=== PATIENT | female | born 1930 | race Caucasian/White ===

== ENCOUNTER 2017-12-08 22:49 | Inpatient (IN) | payer OTHER ==
[~2017-12-08] VITALS: Ht 160 cm; Wt 62.6 kg
[~2017-12-08 22:49] MED LIST: ALEN70TA4 PO; CALCTAB5 PO; CMD/25 PO; HYDR25TA4 PO; LEVO25TA PO; MCRK20 PO; METO25TA56 PO
[2017-12-08] MEDS ORDERED: ALBUT/IPRATROP 3MG/0.5MG NEB 3 ML VIAL INH STA (22:59)
[2017-12-08] MEDS ORDERED: ASPI81TA28 PO (23:14)
[2017-12-08] MEDS ORDERED: ATOR10TA82 PO (23:15)
[2017-12-08] MEDS ORDERED: DILT-115 PO (23:16)
[2017-12-08] MEDS ORDERED: MELA1TAB5 PO (23:17)
[2017-12-08] MEDS ORDERED: MICONAZOLE EXT (23:21)
[2017-12-08] MEDS ORDERED: OSEL75CA23 PO (23:23)
--- NOTE | 2017-12-08 23:24 | EMERGENCY ROOM VISIT NOTE ---
History Report prepared by Everardo: Tima Amato Under the Supervision of: Dr. Thompson Tanner M.D. First contact with patient: 22:52 Chief Complaint: ALTERED MENTAL STATUS Stated Complaint: ALTERED MENTAL STATUS History of Present Illness The patient is a 87 year old female who presents to the Emergency Room with complaints of constant altered mental status that started today. Per nursing, the patient is from [facility] and has been experiencing a cough for a week, which she started taking an antibiotic for. Per EMS, the patient became mentally altered today. She began to become frightened of people and started to believe people were going to hurt her. The HPI is limited due to the patient's altered mental status. Source of History: EMS, nursing staff Onset: today Position: other (global) Quality: other (global) Timing: constant Associated Symptoms: + cough Review of Systems The ROS is limited due secondary to the patient's altered mental status and continuous refusal. Past Medical & Surgical Medical Problems: (1) Diverticulosis (2) HTN (hypertension) (3) Pacemaker (4) Sepsis Family History Patient reports no known family medical history. Social History Smoking Status: Never Smoker Smokeless Tobacco Use: No Alcohol Use: none Drug Use: none Housing Status: lives alone Occupation Status: retired Current/Historical Medications Scheduled Aspirin (Aspirin Ec), 81 MG PO DAILY Atorvastatin (Lipitor), 10 MG PO DAILY Diltiazem Hcl Ext Rel (Tiazac), 240 MG PO DAILY Levothyroxine Sodium (Synthroid), 50 MCG PO DAILY Melatonin (Kp Melatonin), 3 MG PO HS Metoprolol Tartrate (Lopressor) (Lopressor), 12.5 MG PO BID Oseltamivir Phosphate (Tamiflu), 30 MG PO DAILY [miconazole powder], 1 APPLN EXT BID Scheduled PRN Acetaminophen Tab (Tylenol), 650 MG PO Q4 PRN for MILD/SEVERE PAIN Albuterol Sulf (Proventil 0.083% 2.5MG/3ML), 2.5 MG INH Q4 PRN for WHEEZING/ COUGH [Dulcolax Suppository], 10 MG RE DIRECTED PRN for CONSTIPATION Allergies Coded Allergies: Bacitracin (Verified Allergy, Unknown, UNSURE OF REACTION, 12/08/17) Neomycin (Verified Allergy, Unknown, UNSURE OF REACTION, 12/08/17) Nitroglycerin (Verified Allergy, Unknown, "PATCH GLUE CAUSED RASH", 12/08/17 ) Penicillins (Verified Allergy, Unknown, "CAN'T REMEMBER REACTION" ?RASH, ) Polymyxin B (Verified Allergy, Unknown, UNSURE OF REACTION, 12/08/17) Sulfa Drugs (Verified Allergy, Unknown, RASH, 12/08/17) Tetracycline (Verified Allergy, Unknown, UNSURE OF REACTION, 12/08/17) Physical Exam Vital Signs Date Time Temp Pulse Resp B/P (MAP) Pulse Ox O2 Delivery O2 Flow Rate FiO2 12/09/17 00:36 67 22 169/64 95 Room Air 12/08/17 23:05 65 12/08/17 22:57 37.5 64 24 183/71 98 Room Air Physical Exam GENERAL: Patient is unpleasantly demented, angry, well appearing and in no acute distress. HEENT: No acute trauma, normocephalic atraumatic, mucous membranes moist, no nasal congestion, no scleral icterus. NECK: No stridor, no adenopathy, no meningismus, trachea is midline. LUNGS: No dyspnea. Clear to auscultation and equal bilaterally. Harsh productive cough with diffuse crackles and wheezing. no rhonchi. HEART: Regular rate and rhythm. No murmurs, rubs, gallops appreciated. ABDOMEN: Soft, nontender, bowel sounds positive, no masses appreciated, no peritonitis. BACK: No midline tenderness, no CVA tenderness EXTREMITIES: Normal motion all extremities, no cyanosis. 2+ edema bilateral lower legs NEUROLOGIC: Patient is demented and angry, no acute motor or sensory deficits, no focal weakness, cranial nerves grossly intact. SKIN: No rash, no jaundice, no diaphoresis. Medical Decision & Procedures ER Provider Diagnostic Interpretation: X ray results are stated below per my interpretation ONE VIEW CHEST X-RAY: Right lower lobe infiltrate developed. No effusion. No evidence of congestive failure. Laboratory Results 12/08/17 23:48 Red Blood Count 3.65, Mean Corpuscular Volume 92.1, Mean Corpuscular Hemoglobin 29.9, Mean Corpuscular Hemoglobin Concent 32.4, Mean Platelet Volume 10.4, Neutrophils (%) (Auto) 67.2, Lymphocytes (%) (Auto) 22.7, Monocytes (%) (Auto) 8.4, Eosinophils (%) (Auto) 1.2, Basophils (%) (Auto) 0.2, Neutrophils # (Auto) 9.33, Lymphocytes # (Auto) 3.15, Monocytes # (Auto) 1.17, Eosinophils # (Auto) 0.16, Basophils # (Auto) 0.03 12/08/17 23:48 Test 12/08/17 23:00 12/08/17 23:05 12/08/17 23:48 12/08/17 23:53 Urine Color YELLOW Urine Appearance CLEAR (CLEAR) Urine pH 5.0 (4.5-7.5) Urine Specific [place] 1.019 (1.000-1.030) Urine Protein 1+ (NEG) Urine Glucose (UA) NEG (NEG) Urine Ketones NEG (NEG) Urine Occult Blood NEG (NEG) Urine Nitrite NEG (NEG) Urine Bilirubin NEG (NEG) Urine Urobilinogen NEG (NEG) Urine Leukocyte Esterase NEG (NEG) Urine WBC (Auto) 1-5 /hpf (0-5) Urine RBC (Auto) 0-4 /hpf (0-4) Urine Hyaline Casts (Auto) 1-5 /lpf (0-5) Urine Epithelial Cells (Auto) 20-30 /lpf (0-5) Urine Bacteria (Auto) NEG (NEG) Influenza Type A Antigen Neg for Influ A (NEG) Influenza Type B Antigen Neg for Influ B (NEG) White Blood Count 13.88 K/uL (4.8-10.8) Red Blood Count 3.65 M/uL (4.2-5.4) Hemoglobin 10.9 g/dL (12.0-16.0) Hematocrit 33.6 % (37-47) Mean Corpuscular Volume 92.1 fL (80-100) Mean Corpuscular Hemoglobin 29.9 pg (25-34) Mean Corpuscular Hemoglobin Concent 32.4 g/dl (32-36) Platelet Count 208 K/uL (130-400) Mean Platelet Volume 10.4 fL (7.4-10.4) Neutrophils (%) (Auto) 67.2 % Lymphocytes (%) (Auto) 22.7 % Monocytes (%) (Auto) 8.4 % Eosinophils (%) (Auto) 1.2 % Basophils (%) (Auto) 0.2 % Neutrophils # (Auto) 9.33 K/uL (1.4-6.5) Lymphocytes # (Auto) 3.15 K/uL (1.2-3.4) Monocytes # (Auto) 1.17 K/uL (0.11-0.59) Eosinophils # (Auto) 0.16 K/uL (0-0.5) Basophils # (Auto) 0.03 K/uL (0-0.2) RDW Standard Deviation 48.0 fL (36.4-46.3) RDW Coefficient of Variation 14.2 % (11.5-14.5) Immature Granulocyte % (Auto) 0.3 % Immature Granulocyte # (Auto) 0.04 K/uL (0.00-0.02) Prothrombin Time 10.9 SECONDS (9.0-12.0) Prothromb Time International Ratio 1.0 (0.9-1.1) Anion Gap 8.0 mmol/L (3-11) Est Creatinine Clear Calc Drug Dose 38.3 ml/min Estimated GFR () 62.9 Estimated GFR (Non- 54.2 BUN/Creatinine Ratio 20.0 (10-20) Calcium Level 9.1 mg/dl (8.5-10.1) Magnesium Level 2.5 mg/dl (1.8-2.4) Total Bilirubin 0.3 mg/dl (0.2-1) Direct Bilirubin 0.1 mg/dl (0-0.2) Aspartate Amino Transf (AST/SGOT) 10 U/L (15-37) Alanine Aminotransferase (ALT/SGPT) 12 U/L (12-78) Alkaline Phosphatase 83 U/L (45-117) Total Creatine Kinase 39 U/L (26-192) Creatine Kinase MB 0.7 ng/ml (0.5-3.6) Creatine Kinase MB Ratio 1.8 (0-3.0) Troponin I < 0.015 ng/ml (0-0.045) Total Protein 8.2 gm/dl (6.4-8.2) Albumin 3.0 gm/dl (3.4-5.0) Thyroid Stimulating Hormone (TSH) 5.290 uIu/ml (0.300-4.500) Free Thyroxine 1.67 ng/dl (0.80-1.60) Bedside Lactic Acid Venous 1.24 mmol/L (0.90-1.70) Laboratory results as reviewed by me. Medications Administered Medications (Trade) Dose Ordered Sig/[place] Route Start Time Stop Time Status Last Admin Dose Admin Albuterol/ Ipratropium (Duoneb) 3 ml NOW STAT INH 12/08/17 22:59 12/08/17 23:01 DC 12/08/17 23:05 3 ML Levofloxacin (Levaquin / D5W) 750 mg NOW STAT IV 12/09/17 00:38 12/09/17 00:39 DC 12/09/17 00:54 750 MG ECG Per My Interpretation Indication: altered mental status Rate (beats per minute): 67 Rhythm: other (atrial paced) Findings: no acute ischemic change, no ectopy, other (Normal [place]) ED Course 2255: The patient was evaluated in room B06. A complete history and physical exam was performed. 8: I discussed the patients case with Kelly [facility]. He understands the patient's condition and agrees to accept the patient. The patient will be further evaluated. Medical Decision Differential: Sepsis, Infectious (UTI/Pneumonia/Meningitis/etc), Metabolic/ Electrolyte Abnormality, Cardiac, Dehydration, Anemia, Hepatic, Endocrine, Toxicologic, Neurologic, amongst other pathologies entertained. 87 yr old female arrives for evaluation of cough. Very poor lung exam which did improve somewhat with neb. Suspect developing PNA RLL. No fevers, hypoxia but does have elevated WBC from baseline. She has failed outpatient therapy with abx. Discussed with hospitalist for further eval given such poor lung exam. Medication Reconcilliation Current Medication List: was personally reviewed by me Blood Pressure Screening Patient's blood pressure: Elevated blood pressure Will be monitored by Hospitalist. Consults Time Called: 37 Consulting Phys[facility] Returned Call: 37 I discussed the [facility] case [facility]. He understands the patient's condition and agrees to accept the patient. The patient will be further evaluated. Impression Primary Impression: Pneumonia Scribe Attestation The scribe's documentation has been prepared under my direction and personally reviewed by me in its entirety. I confirm that the note above accurately reflects all work, treatment, procedures, and medical decision making performed by me. Departure Information Dispostion Being Evaluated By Hospitalist Referrals Westrick, Miley,M.D. (PCP) Patient Instructions My [facility]
[2017-12-08] MEDS ORDERED: ALBINS/ INH (23:25)
[2017-12-08] MEDS ORDERED: DULCOLAX SUPPOSITORY RE (23:28)
[2017-12-08] MEDS ORDERED: ACET-1693 PO (23:30)
[2017-12-08 23:35] LABS: INFLUENZA B ANTIGEN Neg for Influ B (NEG)
[2017-12-09] VITALS (8 sets, daily range): BP systolic 143–165; BP diastolic 68–78; PULSE 64–77; TEMP 36.4–36.6; O2SAT 96–98; Ht 160 cm; Wt 62.6 kg
[2017-12-09 00:08] LABS: BASO % 0.2 %; BASO ABS # 0.03 K/uL (0-0.2); EOS % 1.2 %; EOS ABS # 0.16 K/uL (0-0.5); HEMATOCRIT 33.6 % (37-47); HEMOGLOBIN 10.9 g/dL (12.0-16.0); IG# 0.04 K/uL (0.00-0.02); LYMPH % 22.7 %; LYMPH ABS # 3.15 K/uL (1.2-3.4); MEAN CELL VOLUME 92.1 fL (80-100); MEAN CORPUSCULAR HEMOGLOBIN 29.9 pg (25-34); MEAN CORPUSCULAR HGB CONC 32.4 g/dl (32-36); MEAN PLATELET VOLUME 10.4 fL (7.4-10.4); MONO % 8.4 %; MONO ABS # 1.17 K/uL (0.11-0.59); NEUT % 67.2 %; NEUT ABS # 9.33 K/uL (1.4-6.5); PLATELET COUNT 208 K/uL (130-400); RED CELL DISTRIBUTION WIDTH CV 14.2 % (11.5-14.5); WHITE BLOOD COUNT 13.88 K/uL (4.8-10.8)
[2017-12-09 00:26] LABS: ALT/SGPT 12 U/L (12-78); BLOOD UREA NITROGEN 19 mg/dl (7-18); CALCIUM 9.1 mg/dl (8.5-10.1); CARBON DIOXIDE 24 mmol/L (21-32); CREATININE 0.95 mg/dl (0.60-1.20); GLUCOSE 126 mg/dl (70-99); POTASSIUM 3.9 mmol/L (3.5-5.1); SODIUM 140 mmol/L (136-145)
[2017-12-09 00:31] LABS: ALKALINE PHOSPHATASE 83 U/L (45-117); AST/SGOT 10 U/L (15-37); CKMB 0.7 ng/ml (0.5-3.6); TOTAL PROTEIN 8.2 gm/dl (6.4-8.2)
[2017-12-09] MEDS ORDERED: LEVAQUIN 750MG / 150ML D5W IV STA (00:38)
[2017-12-09] MEDS ORDERED: METOPROLOL TARTRATE 25 MG TAB PO ONE (01:39)
[2017-12-09] MEDS ORDERED: LACTATED RINGER'S 1000ML 1,000 ML IV ONE (01:45)
[2017-12-09] MEDS ORDERED: ACETAMINOPHEN 325 MG TAB PO PRN (01:45)
[2017-12-09] MEDS ORDERED: HALOPERIDOL LACTATE 5 MG/ML 1 ML VIAL IM PRN (01:45)
[2017-12-09] MEDS ORDERED: PROCHLORPERAZINE INJ 5 MG in SYRINGE 4 ML IV PRN (01:45)
[2017-12-09] MEDS ORDERED: LEVALBUTEROL/IPRATROPIUM NEB INH PRN (01:45)
[2017-12-09] MEDS ORDERED: METHYLPREDNISOLONE IV 20 MG in SYRINGE 0 ML IV ONE (02:00)
[2017-12-09] MEDS ORDERED: LEVALBUTEROL 1.25MG/0.5ML NEB INH PRN (02:15)
[2017-12-09] MEDS ORDERED: IPRATROPIUM BROMIDE NEB SOLN 0.02% 2.5 ML VIAL INH PRN (02:15)
[2017-12-09] MEDS ORDERED: LEVALBUTEROL/IPRATROPIUM NEB INH SCH (03:00)
[2017-12-09] MEDS: IPRATROPIUM BROMIDE NEB SOLN 0.02% 2.5 ML VIAL INH SCH ×4 (03:22→19:09)
[2017-12-09] MEDS: LEVALBUTEROL 1.25MG/0.5ML NEB INH SCH ×4 (03:22→19:09)
[2017-12-09] MEDS ORDERED: BENZONATATE 100MG CAP PO PRN (03:30)
[2017-12-09] MEDS ORDERED: PNEUMOCOCCAL POLYSACCHARIDES 25 MCG/0.5 ML VIAL/SYR IM. ONE (03:30)
[2017-12-09] MEDS ORDERED: INFLUENZA ADMINISTRATION CHARGE ONE (03:30)
[2017-12-09] MEDS ORDERED: INFLUENZA VACCINE HIGH DOSE 65+ 0.5 ML SYR IM. ONE (03:30)
[2017-12-09] MEDS ORDERED: PNEUMOCOCCAL ADMINISTRATION CHARGE ONE (03:30)
--- NOTE | 2017-12-09 05:16 | DIAGNOSTIC IMAGING REPORT ---
CHEST ONE VIEW PORTABLE CLINICAL HISTORY: 87 years-old Female presenting with fever. TECHNIQUE: Portable upright AP view of the chest was obtained. COMPARISON: 10/22/2013. FINDINGS: Left subclavian pacer with leads to the right atrium and right ventricular apex. Atherosclerosis of the aortic arch. Chronic silhouette normal in size. Patient is slightly MÉNDEZ rotated. Lungs may be mildly hyperinflated. No focal opacity. No large effusion or pneumothorax. Osteopenia. Compression deformity of a lower thoracic vertebral body is new from prior. Upper abdomen normal. IMPRESSION: 1. Mild hyperinflation without focal infiltrate or convincing evidence of acute cardiopulmonary disease. 2. Osteopenia with interval development of a compression deformity in the lower thoracic spine, new since 2013. The report will be called/faxed according to standard departmental protocol. Electronically signed by: Jhony Greco M.D. 12/09/2017 5:15 AM Dictated Date/Time: 12/09/2017 5:13 AM
[2017-12-09] MEDS: ENOXAPARIN 30 MG/0.3 ML SYR SQ SCH (05:30)
[2017-12-09] MEDS: LEVOTHYROXINE 50 MCG TAB PO SCH (05:32)
[2017-12-09 06:20] LABS: BASO % 0.1 %; BASO ABS # 0.01 K/uL (0-0.2); EOS % 0.3 %; EOS ABS # 0.03 K/uL (0-0.5); HEMATOCRIT 30.5 % (37-47); IG# 0.04 K/uL (0.00-0.02); LYMPH % 9.9 %; MEAN CELL VOLUME 91.9 fL (80-100); MEAN CORPUSCULAR HEMOGLOBIN 30.1 pg (25-34); MEAN CORPUSCULAR HGB CONC 32.8 g/dl (32-36); MEAN PLATELET VOLUME 10.6 fL (7.4-10.4); MONO % 2.6 %; MONO ABS # 0.24 K/uL (0.11-0.59); NEUT % 86.7 %; NEUT ABS # 7.89 K/uL (1.4-6.5); PLATELET COUNT 187 K/uL (130-400); RED CELL DISTRIBUTION WIDTH CV 14.2 % (11.5-14.5); WHITE BLOOD COUNT 9.11 K/uL (4.8-10.8)
[2017-12-09 06:25] LABS: INFLUENZA A PCR Neg for Influ A (NEG); INFLUENZA B PCR Neg for Influ B (NEG)
[2017-12-09] MEDS ORDERED: OSELTAMIVIR PHOSPHATE SUSP 30 MG/5 ML UDP PO SCH (08:00)
[2017-12-09] MEDS: DILTIAZEM HCL 120 MG EXT REL CAP PO SCH (08:10)
[2017-12-09] MEDS: ASPIRIN 81 MG ECTAB PO SCH (08:10)
[2017-12-09] MEDS: ATORVASTATIN 10 MG TAB PO SCH (08:10)
[2017-12-09] MEDS ORDERED: MICONAZOLE NITRATE POWDER 43 GM EXT PRN (08:30)
[2017-12-09] MEDS ORDERED: AZITHROMYCIN 250 MG TAB PO ONE (09:00)
[2017-12-09] MEDS ORDERED: DEXTROSE 50% 50 ML SYR IV PRN (10:15)
[2017-12-09] MEDS ORDERED: GLUCOSE 40% GEL 15 GM TUBE PO PRN (10:15)
[2017-12-09] MEDS ORDERED: GLUCOSE 10 TABS/TUBE PO PRN (10:15)
[2017-12-09] MEDS ORDERED: GLUCAGON FOR INJ 1 MG VIAL SQ PRN (10:15)
[2017-12-09 10:59] LABS: HEMOGLOBIN A1C 6.5 % (4.5-5.6)
--- NOTE | 2017-12-09 11:21 | HISTORY & PHYSICAL EXAMINATION ---
DATE OF ADMISSION: 12/09/2017 PRIMARY CARE DOCTOR: Dr. Bailey Patient is a [facility] resident. CHIEF COMPLAINT: cough, confusion as per records. HISTORY OF PRESENT ILLNESS: History obtained from patient, daughter, records. Limited history from patient secondary to dementia. Medical history is significant for dementia, chronic diastolic heart failure, EF of 70%. aFib status post pacemaker placement not on anticoagulation secondary to hx hemopericardium, Hemopericardium status post surgery, hypertension, hyperlipidemia, chronic anemia (baseline hemoglobin 10); DM2, diet controlled, hypothyroidism, history of DVT as per records, colon cancer status post surgery and chemotherapy Recent confinement last October 2013 for CHF, pericardial effusion secondary to perforation of ventricles by pacemaker wire sp pericardicentesis. Patient transferred to [facility] for hemopericardium. Patient subsequently underwent upper pericardectomy w/ drainage of hemo- pericardium, partial removal of pacemaker lead. Coumadin stopped on discharge. As per records, patient noted to be more confused than usual last few days, has been coughing for a week. Patient having paranoia and visual hallucinations. Patient denies chest pain, shortness of breath. No witnessed aspiration. Patient brought to the Emergency Room. Received Levaquin for possible pneumonia. MEDICAL HISTORY: As above. SURGERIES: She has had a pacemaker placement, bowel resection, appendectomy, cholecystectomy, and orthopedic surgery, pericardiectomy. Current/Historical Medications Scheduled Aspirin (Aspirin Ec), 81 MG PO DAILY Atorvastatin (Lipitor), 10 MG PO DAILY Diltiazem Hcl Ext Rel (Tiazac), 240 MG PO DAILY Levothyroxine Sodium (Synthroid), 50 MCG PO DAILY Melatonin (Kp Melatonin), 3 MG PO HS Metoprolol Tartrate (Lopressor) (Lopressor), 12.5 MG PO BID Oseltamivir Phosphate (Tamiflu), 30 MG PO DAILY [miconazole powder], 1 APPLN EXT BID Scheduled PRN Acetaminophen Tab (Tylenol), 650 MG PO Q4 PRN for MILD/SEVERE PAIN Albuterol Sulf (Proventil 0.083% 2.5MG/3ML), 2.5 MG INH Q4 PRN for WHEEZING/ COUGH [Dulcolax Suppository], 10 MG RE DIRECTED PRN for CONSTIPATION Allergies Coded Allergies: Bacitracin (Verified Allergy, Unknown, UNSURE OF REACTION, 12/08/17) Neomycin (Verified Allergy, Unknown, UNSURE OF REACTION, 12/08/17) Nitroglycerin (Verified Allergy, Unknown, "PATCH GLUE CAUSED RASH", 12/08/17 ) Penicillins (Verified Allergy, Unknown, "CAN'T REMEMBER REACTION" ?RASH, ) Polymyxin B (Verified Allergy, Unknown, UNSURE OF REACTION, 12/08/17) Sulfa Drugs (Verified Allergy, Unknown, RASH, 12/08/17) Tetracycline (Verified Allergy, Unknown, UNSURE OF REACTION, 12/08/17) FAMILY HISTORY: Hypertension. PERSONAL AND SOCIAL HISTORY: Nonsmoker, care home resident. REVIEW OF SYSTEMS: Could not be obtained. PHYSICAL EXAMINATION: VITAL SIGNS: Blood pressure noted to be 180/71 later 160/80. VA 67, RR 24 temperature 36.5 O2 sats 98% on room air. GENERAL: Noted to be demented, uncomfortable, respiratory distress, coughing. SKIN: Pallor, warm. HEENT: Pale palpebral conjunctivae, no ptosis , dry mucosa. NECK: Short, nontender. CHEST: Decreased breath sounds. Expiratory wheezes. HEART: Regular rate and rhythm. No murmur. ABDOMEN: Soft, nontender. EXTREMITIES: No edema. no gross deformities, no tenderness NEUROLOGIC: Demented but coherent. Slightly hard of hearing. Otherwise, no gross focality. LABS: Hemoglobin was noted to be 10, hematocrit 30.8, platelets noted to be 208. WBC 13 Sodium noted to be 140 potassium 2.9, chloride 108, CO2 24, BUN 90, creatinine 0.9, glucose 136. trop 0 Hemoglobin A1c from April of 2017 was 6.5. IMAGING DATA: Chest x-ray as per my interpretation, no obvious infiltrate. EKG as per my interpretation, paced rhythm. ASSESSMENT: 1. Sepsis secondary to complicated bronchitis. 2. Delirium on dementia secondary to above 3. HTN. Slightly elevated secondary to illness, agitation 4. SSS sp PPM off anticoagulation following history of hemopericardium sp surgery in 2013. 5. Hx colon cancer status post surgery and chemotherapy. 6. DM2, diet controlled, well controlled as of recent outpatient hemoglobin A1c from last year 7. Chronic anemia hemoglobin at baseline PLAN: GMF CS, Azithromycin for now. IVF Solu-Medrol 1 dose for persistent wheezing post nebs Nebs RTC p.r.n. ISS BG goal 140-180. Patient due for hemoglobin A1c recheck. DVT prophylaxis, Lovenox subQ. Full code as per daughter, JAIDENA Ms. Arianna Vuongjosettelu She requests updates from providers at [phone]. [facility]
[2017-12-09] MEDS: INSULIN ASPART 100 UNITS/ML 3 ML PEN SC SCH ×3 (13:03→20:39)
--- NOTE | 2017-12-09 17:14 | Progress Note ---
Internal Med Progress Note Date of Service: Dec 09, 2017. Provider Documentation: SUBJECTIVE: Seen and examined at bedside States having cough with clear expectoration Denies chest pain, SOB, abdominal pain, dizziness Patient's daughter informed that she noticed change in patient's mental status and she has been on Tamiflu Day #7 No other complaints Also denies any back pain, weakness/Numbness in extremities OBJECTIVE: Vital Signs-as noted below Physical Exam: General Appearance:Moderately built and nourished, no apparent distress Head: normocephalic, Atraumatic Eyes: normal inspection, EOMI, PERRL Neck: supple, Trachea midline Respiratory/Chest: Coarse breath sounds, Scattered rhonchi Cardiovascular: S1, S2, No murmur Abdomen/GI:Soft, Non tender, Bowel sounds present Extremities/Musculoskelatal:normal inspection, 1+ b/l edema Neurologic/Psych:grossly no focal neurological deficits Skin: normal color, warm Lab data as noted below. ASSESSMENT & PLAN: Acute Bronchitis: Leukocytosis normalized No fever Blood Cultures: Pending Lactate:Normal CXR: no signs of Pneumonia Continue Azithromycin Saturating 96% on room air continue Nebs Encephalopathy: could be multifactorial in setting of Dementia Secondary to Infection, Medications, Delirium Tamiflu could be contributing Will stop Tamiflu as patient already received for 7 days and screen is negative Reorient frequently Avoid Benzos HTN: Continue home medications monitor SSS S/P PPM Not on Anticoagulation 2/2 history of hemopericardium in 2013. H/O colon cancer S/P surgery and chemotherapy DM II: Diet controlled A1C:6.5 BGs elevated likely secondary to solumedrol Continue ISS Chronic anemia: No bleeding issues Monitor Hb Hypothyroidism: Continue Levothyroxine Will need repeat Thyroid tests as outpatient DVT Px: Lovenox SQ Code Status: Full Code Disposition: Plan to discharge back to [facility] when stable Vital Signs: Date Time Temp Pulse Resp B/P (MAP) Pulse Ox O2 Delivery O2 Flow Rate FiO2 12/09/17 15:23 36.6 70 20 143/78 (99) 96 12/09/17 14:30 72 16 96 Room Air 12/09/17 08:08 36.4 71 20 156/68 (97) 96 12/09/17 08:05 Room Air 12/09/17 07:24 72 16 98 Room Air 12/09/17 03:23 64 16 98 Room Air 12/09/17 01:50 36.5 73 24 165/73 98 Room Air 12/09/17 01:39 70 20 140/65 94 Room Air 12/09/17 00:36 67 22 169/64 95 Room Air 12/08/17 23:05 65 12/08/17 22:57 37.5 64 24 183/71 98 Room Air Lab Results: Results Past 24 Hours Test 12/08/17 23:00 12/08/17 23:05 12/08/17 23:48 12/08/17 23:53 Range/Units Urine Color YELLOW Urine Appearance CLEAR CLEAR Urine pH 5.0 4.5-7.5 Urine Specific [place] 1.019 1.000-1.030 Urine Protein 1+ NEG Urine Glucose (UA) NEG NEG Urine Ketones NEG NEG Urine Occult Blood NEG NEG Urine Nitrite NEG NEG Urine Bilirubin NEG NEG Urine Urobilinogen NEG NEG Urine Leukocyte Esterase NEG NEG Urine WBC (Auto) 1-5 0-5 /hpf Urine RBC (Auto) 0-4 0-4 /hpf Urine Hyaline Casts (Auto) 1-5 0-5 /lpf Urine Epithelial Cells (Auto) 20-30 0-5 /lpf Urine Bacteria (Auto) NEG NEG Influenza Type A Antigen Neg for Influ A NEG Influenza Type B Antigen Neg for Influ B NEG White Blood Count 13.88 4.8-10.8 K/uL Red Blood Count 3.65 4.2-5.4 M/uL Hemoglobin 10.9 12.0-16.0 g/dL Hematocrit 33.6 37-47 % Mean Corpuscular Volume 92.1 80-100 fL Mean Corpuscular Hemoglobin 29.9 25-34 pg Mean Corpuscular Hemoglobin Concent 32.4 32-36 g/dl Platelet Count 208 130-400 K/uL Mean Platelet Volume 10.4 7.4-10.4 fL Neutrophils (%) (Auto) 67.2 % Lymphocytes (%) (Auto) 22.7 % Monocytes (%) (Auto) 8.4 % Eosinophils (%) (Auto) 1.2 % Basophils (%) (Auto) 0.2 % Neutrophils # (Auto) 9.33 1.4-6.5 K/uL Lymphocytes # (Auto) 3.15 1.2-3.4 K/uL Monocytes # (Auto) 1.17 0.11-0.59 K/uL Eosinophils # (Auto) 0.16 0-0.5 K/uL Basophils # (Auto) 0.03 0-0.2 K/uL RDW Standard Deviation 48.0 36.4-46.3 fL RDW Coefficient of Variation 14.2 11.5-14.5 % Immature Granulocyte % (Auto) 0.3 % Immature Granulocyte # (Auto) 0.04 0.00-0.02 K/uL Prothrombin Time 10.9 9.0-12.0 SECONDS Prothromb Time International Ratio 1.0 0.9-1.1 Sodium Level 140 136-145 mmol/L Potassium Level 3.9 3.5-5.1 mmol/L Chloride Level 108 98-107 mmol/L Carbon Dioxide Level 24 21-32 mmol/L Anion Gap 8.0 3-11 mmol/L Blood Urea Nitrogen 19 7-18 mg/dl Creatinine 0.95 0.60-1.20 mg/dl Est Creatinine Clear Calc Drug Dose 38.3 ml/min Estimated GFR () 62.9 Estimated GFR (Non- 54.2 BUN/Creatinine Ratio 20.0 10-20 Random Glucose 126 70-99 mg/dl Calcium Level 9.1 8.5-10.1 mg/dl Magnesium Level 2.5 1.8-2.4 mg/dl Total Bilirubin 0.3 0.2-1 mg/dl Direct Bilirubin 0.1 0-0.2 mg/dl Aspartate Amino Transf (AST/SGOT) 10 15-37 U/L Alanine Aminotransferase (ALT/SGPT) 12 12-78 U/L Alkaline Phosphatase 83 45-117 U/L Total Creatine Kinase 39 26-192 U/L Creatine Kinase MB 0.7 0.5-3.6 ng/ml Creatine Kinase MB Ratio 1.8 0-3.0 Troponin I < 0.015 0-0.045 ng/ml Total Protein 8.2 6.4-8.2 gm/dl Albumin 3.0 3.4-5.0 gm/dl Thyroid Stimulating Hormone (TSH) 5.290 0.300-4.500 uIu/ml Free Thyroxine 1.67 0.80-1.60 ng/dl Bedside Lactic Acid Venous 1.24 0.90-1.70 mmol/L Test 12/09/17 05:35 12/09/17 05:43 12/09/17 11:59 12/09/17 17:00 Range/Units Influenza Type A (RT-PCR) Neg for Influ A NEG Influenza Type B (RT-PCR) Neg for Influ B NEG White Blood Count 9.11 4.8-10.8 K/uL Red Blood Count 3.32 4.2-5.4 M/uL Hemoglobin 10.0 12.0-16.0 g/dL Hematocrit 30.5 37-47 % Mean Corpuscular Volume 91.9 80-100 fL Mean Corpuscular Hemoglobin 30.1 25-34 pg Mean Corpuscular Hemoglobin Concent 32.8 32-36 g/dl Platelet Count 187 130-400 K/uL Mean Platelet Volume 10.6 7.4-10.4 fL Neutrophils (%) (Auto) 86.7 % Lymphocytes (%) (Auto) 9.9 % Monocytes (%) (Auto) 2.6 % Eosinophils (%) (Auto) 0.3 % Basophils (%) (Auto) 0.1 % Neutrophils # (Auto) 7.89 1.4-6.5 K/uL Lymphocytes # (Auto) 0.90 1.2-3.4 K/uL Monocytes # (Auto) 0.24 0.11-0.59 K/uL Eosinophils # (Auto) 0.03 0-0.5 K/uL Basophils # (Auto) 0.01 0-0.2 K/uL RDW Standard Deviation 48.0 36.4-46.3 fL RDW Coefficient of Variation 14.2 11.5-14.5 % Immature Granulocyte % (Auto) 0.4 % Immature Granulocyte # (Auto) 0.04 0.00-0.02 K/uL Estimated Average Glucose 140 mg/dl Hemoglobin A1c 6.5 4.5-5.6 % Total Triiodothyronine 0.84 0.60-1.81 ng/ml Bedside Glucose 224 252 70-90 mg/dl Microbiology Results 12/08/17 Blood Culture, Received Pending 12/08/17 Blood Culture, Received Pending 12/09/17 MRSA DNA Surveillance Screen - Final, Complete Specimen Negative for MRSA by DNA Probe
[2017-12-09] MEDS: METOPROLOL TARTRATE 25 MG TAB PO SCH (20:05)
[2017-12-10] VITALS (7 sets, daily range): BP systolic 145–245; BP diastolic 61–83; PULSE 75–92; TEMP 36.3–36.5; O2SAT 95–97
[2017-12-10] MEDS: LEVALBUTEROL 1.25MG/0.5ML NEB INH SCH ×4 (01:42→17:04)
[2017-12-10] MEDS: IPRATROPIUM BROMIDE NEB SOLN 0.02% 2.5 ML VIAL INH SCH ×4 (01:42→19:38)
[2017-12-10] MEDS: LEVOTHYROXINE 50 MCG TAB PO SCH (05:40)
[2017-12-10] MEDS: ENOXAPARIN 30 MG/0.3 ML SYR SQ SCH (05:42)
[2017-12-10] MEDS: INSULIN ASPART 100 UNITS/ML 3 ML PEN SC SCH ×4 (06:30→21:00)
[2017-12-10 06:54] LABS: HEMATOCRIT 30.5 % (37-47); MEAN CELL VOLUME 91.9 fL (80-100); MEAN CORPUSCULAR HEMOGLOBIN 30.1 pg (25-34); MEAN CORPUSCULAR HGB CONC 32.8 g/dl (32-36); MEAN PLATELET VOLUME 11.1 fL (7.4-10.4); PLATELET COUNT 197 K/uL (130-400); RED CELL DISTRIBUTION WIDTH CV 14.2 % (11.5-14.5); RED CELL DISTRIBUTION WIDTH SD 47.7 fL (36.4-46.3); WHITE BLOOD COUNT 11.23 K/uL (4.8-10.8)
[2017-12-10 07:01] LABS: CALCIUM 8.6 mg/dl (8.5-10.1); CREATININE 1.01 mg/dl (0.60-1.20); POTASSIUM 3.7 mmol/L (3.5-5.1)
[2017-12-10] MEDS: AZITHROMYCIN 250 MG TAB PO SCH ×2 (08:00→08:17)
[2017-12-10] MEDS: METOPROLOL TARTRATE 25 MG TAB PO SCH ×3 (08:00→18:40)
[2017-12-10] MEDS: DILTIAZEM HCL 120 MG EXT REL CAP PO SCH ×3 (08:00→19:41)
[2017-12-10] MEDS: ATORVASTATIN 10 MG TAB PO SCH ×2 (08:00→08:17)
[2017-12-10] MEDS: ASPIRIN 81 MG ECTAB PO SCH ×2 (08:00→08:17)
[2017-12-10] MEDS: HALOPERIDOL 1 MG TAB PO PRN ×2 (08:17→19:41)
--- NOTE | 2017-12-10 09:30 | Progress Note ---
Internal Med Progress Note Date of Service: Dec 10, 2017. Provider Documentation: SUBJECTIVE: Seen and examined at bedside Patient was delirious and combative per staff this morning Sustained an abrasion on left hand Received a dose of Haldol today States she is upset and wanted to leave the hospital less cough Denies chest pain, SOB, abdominal pain, dizziness OBJECTIVE: Vital Signs-as noted below Physical Exam: General Appearance:Moderately built and nourished, no apparent distress Head: normocephalic, Atraumatic Eyes: normal inspection, EOMI, PERRL Neck: supple, Trachea midline Respiratory/Chest: Normal breath sounds, CTA Cardiovascular: S1, S2, No murmur Abdomen/GI:Soft, Non tender, Bowel sounds present Extremities/Musculoskelatal:normal inspection, 1+ b/l edema Neurologic/Psych:grossly no focal neurological deficits Skin: normal color, warm Lab data as noted below. ASSESSMENT & PLAN: Acute Bronchitis: Mild leukocytosis No fever Blood Cultures: No growth to date Lactate:Normal CXR: no signs of Pneumonia Continue Azithromycin Saturating well on room air continue Nebs Encephalopathy: could be multifactorial in setting of Dementia Secondary to Infection, Medications, Delirium Tamiflu could be contributing Tamiflu discontinued Reorient frequently Avoid Benzos One on One sitter Haldol PRN HTN: Elevated today, likely situational Continue home medications monitor SSS S/P PPM Not on Anticoagulation 2/2 history of hemopericardium in 2013. H/O colon cancer S/P surgery and chemotherapy DM II: Diet controlled A1C:6.5 BGs elevated likely secondary to solumedrol Continue ISS Chronic anemia: No bleeding issues Monitor Hb Hypothyroidism: Continue Levothyroxine Will need repeat Thyroid tests as outpatient DVT Px: Lovenox SQ Code Status: Full Code Disposition: Plan to discharge back to [facility] when stable Vital Signs: Date Time Temp Pulse Resp B/P (MAP) Pulse Ox O2 Delivery O2 Flow Rate FiO2 12/10/17 07:46 36.3 76 18 196/73 (114) 95 Room Air 191/83 (119) 12/10/17 00:15 Room Air 12/10/17 00:00 36.5 83 18 145/63 (90) 95 Room Air 12/09/17 19:09 77 16 97 Room Air 12/09/17 16:00 96 Room Air 12/09/17 15:23 36.6 70 20 143/78 (99) 96 12/09/17 14:30 72 16 96 Room Air Lab Results: Results Past 24 Hours Test 12/09/17 11:59 12/09/17 17:00 12/09/17 20:38 12/10/17 05:31 Range/Units Bedside Glucose 224 252 161 70-90 mg/dl White Blood Count 11.23 4.8-10.8 K/uL Red Blood Count 3.32 4.2-5.4 M/uL Hemoglobin 10.0 12.0-16.0 g/dL Hematocrit 30.5 37-47 % Mean Corpuscular Volume 91.9 80-100 fL Mean Corpuscular Hemoglobin 30.1 25-34 pg Mean Corpuscular Hemoglobin Concent 32.8 32-36 g/dl RDW Standard Deviation 47.7 36.4-46.3 fL RDW Coefficient of Variation 14.2 11.5-14.5 % Platelet Count 197 130-400 K/uL Mean Platelet Volume 11.1 7.4-10.4 fL Sodium Level 142 136-145 mmol/L Potassium Level 3.7 3.5-5.1 mmol/L Chloride Level 111 98-107 mmol/L Carbon Dioxide Level 23 21-32 mmol/L Anion Gap 8.0 3-11 mmol/L Blood Urea Nitrogen 22 7-18 mg/dl Creatinine 1.01 0.60-1.20 mg/dl Est Creatinine Clear Calc Drug Dose 33.1 ml/min Estimated GFR () 58.4 Estimated GFR (Non- 50.4 BUN/Creatinine Ratio 21.7 10-20 Random Glucose 119 70-99 mg/dl Calcium Level 8.6 8.5-10.1 mg/dl Magnesium Level 2.3 1.8-2.4 mg/dl
[2017-12-10] MEDS ORDERED: HydrALAZINE HCL 20 MG/ML VIAL IV. PRN (14:45)
[2017-12-10] MEDS ORDERED: HydrALAZINE HCL 20 MG/ML VIAL ONE (14:53)
--- NOTE | 2017-12-10 18:55 | Progress Note ---
Progress Note Date of Service Dec 10, 2017. Progress Note Patient's blood pressure is uncontrolled as patient has been refusing medications. Counseled the patient regarding the same, and patient willing to take medications if given in small quantities. will monitor BP closely. Patient is asymptomatic.
[2017-12-11] VITALS (11 sets, daily range): BP systolic 120–183; BP diastolic 64–86; PULSE 72–98; TEMP 36.3–36.6; O2SAT 94–98
[2017-12-11] MEDS: IPRATROPIUM BROMIDE NEB SOLN 0.02% 2.5 ML VIAL INH SCH ×4 (01:44→19:15)
[2017-12-11] MEDS: LEVALBUTEROL 1.25MG/0.5ML NEB INH SCH ×4 (01:45→19:15)
[2017-12-11] MEDS: ENOXAPARIN 30 MG/0.3 ML SYR SQ SCH (06:00)
[2017-12-11] MEDS: LEVOTHYROXINE 50 MCG TAB PO SCH (06:02)
[2017-12-11] MEDS: INSULIN ASPART 100 UNITS/ML 3 ML PEN SC SCH ×4 (06:30→21:00)
[2017-12-11 07:04] LABS: HEMATOCRIT 31.8 % (37-47); HEMOGLOBIN 10.4 g/dL (12.0-16.0); MEAN CELL VOLUME 90.9 fL (80-100); MEAN CORPUSCULAR HEMOGLOBIN 29.7 pg (25-34); MEAN CORPUSCULAR HGB CONC 32.7 g/dl (32-36); MEAN PLATELET VOLUME 10.9 fL (7.4-10.4); PLATELET COUNT 230 K/uL (130-400); RED CELL DISTRIBUTION WIDTH CV 14.4 % (11.5-14.5); RED CELL DISTRIBUTION WIDTH SD 48.3 fL (36.4-46.3); WHITE BLOOD COUNT 8.64 K/uL (4.8-10.8)
[2017-12-11 07:23] LABS: CALCIUM 8.4 mg/dl (8.5-10.1); CREATININE 0.93 mg/dl (0.60-1.20); POTASSIUM 3.1 mmol/L (3.5-5.1)
[2017-12-11] MEDS: ATORVASTATIN 10 MG TAB PO SCH (08:27)
[2017-12-11] MEDS: ASPIRIN 81 MG ECTAB PO SCH (08:27)
[2017-12-11] MEDS: AZITHROMYCIN 250 MG TAB PO SCH (08:28)
[2017-12-11] MEDS: METOPROLOL TARTRATE 25 MG TAB PO SCH ×2 (08:28→19:28)
[2017-12-11] MEDS ORDERED: POTASSIUM CHLORIDE 10 MEQ TABCR PO ONE (11:45)
--- NOTE | 2017-12-11 11:48 | Progress Note ---
Internal Med Progress Note Date of Service: Dec 11, 2017. Provider Documentation: SUBJECTIVE: Seen and examined at bedside doing better today Delirium improving, intermittently confused per staff less cough Denies chest pain, SOB, abdominal pain, dizziness No other complaints Taking medications as advised today, refused Lovenox OBJECTIVE: Vital Signs-as noted below Physical Exam: General Appearance:Moderately built and nourished, no apparent distress Head: normocephalic, Atraumatic Eyes: normal inspection, EOMI, PERRL Neck: supple, Trachea midline Respiratory/Chest: Normal breath sounds, CTA Cardiovascular: S1, S2, No murmur Abdomen/GI:Soft, Non tender, Bowel sounds present Extremities/Musculoskelatal:normal inspection, 1+ b/l edema Neurologic/Psych:grossly no focal neurological deficits Skin: normal color, warm Lab data as noted below. ASSESSMENT & PLAN: Acute Bronchitis: leukocytosis normalized No fever Blood Cultures: No growth to date Lactate:Normal CXR: no signs of Pneumonia Continue Azithromycin to complete the course Saturating well on room air continue Nebs PRN Encephalopathy: could be multifactorial in setting of Dementia Secondary to Infection, Medications, Delirium Tamiflu could be contributing Tamiflu discontinued Reorient frequently Avoid Benzos Haldol PRN Hypokalemia: Replace and monitor HTN: BP better today Has been taking meds today Continue home medications monitor SSS S/P PPM Not on Anticoagulation 2/2 history of hemopericardium in 2013. H/O colon cancer S/P surgery and chemotherapy DM II: Diet controlled A1C:6.5 BGs elevated likely secondary to solumedrol Continue ISS Chronic anemia: No bleeding issues Monitor Hb Hypothyroidism: Continue Levothyroxine Will need repeat Thyroid tests as outpatient DVT Px: Lovenox SQ Code Status: Full Code Disposition: Plan to discharge back to [facility] likely tomorrow if stable Vital Signs: Date Time Temp Pulse Resp B/P (MAP) Pulse Ox O2 Delivery O2 Flow Rate FiO2 12/11/17 09:33 98 Room Air 12/11/17 07:40 36.3 94 14 120/64 (82) 98 Room Air 12/11/17 07:20 84 16 96 Room Air 12/11/17 01:48 72 16 97 Room Air 12/11/17 00:40 36.6 98 20 183/86 (118) 97 Room Air 12/11/17 00:00 97 Room Air 12/10/17 19:42 75 16 97 Room Air 12/10/17 18:38 90 194/71 (112) 12/10/17 15:55 92 199/71 (113) 12/10/17 15:40 97 Room Air 12/10/17 15:26 36.3 75 18 245/64 (124) 97 223/71 (121) 214/61 (111) Lab Results: Results Past 24 Hours Test 12/10/17 16:45 12/10/17 21:02 12/11/17 06:16 12/11/17 07:56 Range/Units Bedside Glucose 130 142 123 70-90 mg/dl White Blood Count 8.64 4.8-10.8 K/uL Red Blood Count 3.50 4.2-5.4 M/uL Hemoglobin 10.4 12.0-16.0 g/dL Hematocrit 31.8 37-47 % Mean Corpuscular Volume 90.9 80-100 fL Mean Corpuscular Hemoglobin 29.7 25-34 pg Mean Corpuscular Hemoglobin Concent 32.7 32-36 g/dl RDW Standard Deviation 48.3 36.4-46.3 fL RDW Coefficient of Variation 14.4 11.5-14.5 % Platelet Count 230 130-400 K/uL Mean Platelet Volume 10.9 7.4-10.4 fL Sodium Level 142 136-145 mmol/L Potassium Level 3.1 3.5-5.1 mmol/L Chloride Level 109 98-107 mmol/L Carbon Dioxide Level 26 21-32 mmol/L Anion Gap 7.0 3-11 mmol/L Blood Urea Nitrogen 20 7-18 mg/dl Creatinine 0.93 0.60-1.20 mg/dl Est Creatinine Clear Calc Drug Dose 35.9 ml/min Estimated GFR () 64.5 Estimated GFR (Non- 55.6 BUN/Creatinine Ratio 21.1 10-20 Random Glucose 113 70-99 mg/dl Calcium Level 8.4 8.5-10.1 mg/dl Magnesium Level 2.2 1.8-2.4 mg/dl Test 12/11/17 11:27 Range/Units Bedside Glucose 149 70-90 mg/dl
[2017-12-12] MEDS: IPRATROPIUM BROMIDE NEB SOLN 0.02% 2.5 ML VIAL INH SCH ×4 (02:12→19:12)
[2017-12-12] MEDS: LEVALBUTEROL 1.25MG/0.5ML NEB INH SCH ×4 (02:13→19:12)
[2017-12-12 06:12] LABS: BASO % 0.3 %; BASO ABS # 0.02 K/uL (0-0.2); EOS ABS # 0.16 K/uL (0-0.5); HEMATOCRIT 32.9 % (37-47); HEMOGLOBIN 10.7 g/dL (12.0-16.0); IG# 0.03 K/uL (0.00-0.02); LYMPH % 24.4 %; LYMPH ABS # 1.95 K/uL (1.2-3.4); MEAN CELL VOLUME 91.4 fL (80-100); MEAN CORPUSCULAR HEMOGLOBIN 29.7 pg (25-34); MEAN CORPUSCULAR HGB CONC 32.5 g/dl (32-36); MEAN PLATELET VOLUME 10.4 fL (7.4-10.4); MONO % 10.6 %; MONO ABS # 0.85 K/uL (0.11-0.59); NEUT % 62.3 %; NEUT ABS # 4.98 K/uL (1.4-6.5); PLATELET COUNT 214 K/uL (130-400); RED CELL DISTRIBUTION WIDTH CV 14.4 % (11.5-14.5); WHITE BLOOD COUNT 7.99 K/uL (4.8-10.8)
[2017-12-12] MEDS: LEVOTHYROXINE 50 MCG TAB PO SCH (06:23)
[2017-12-12] MEDS: ENOXAPARIN 30 MG/0.3 ML SYR SQ SCH (06:24)
[2017-12-12 06:49] LABS: CALCIUM 8.4 mg/dl (8.5-10.1); CREATININE 1.09 mg/dl (0.60-1.20); POTASSIUM 3.7 mmol/L (3.5-5.1)
[2017-12-12 07:40] VITALS: BP 183/95; PULSE 82; TEMP 36.4; O2SAT 96
[2017-12-12] MEDS: ASPIRIN 81 MG ECTAB PO SCH (07:43)
[2017-12-12] MEDS: AZITHROMYCIN 250 MG TAB PO SCH (07:43)
[2017-12-12] MEDS: ATORVASTATIN 10 MG TAB PO SCH (07:44)
[2017-12-12] MEDS: METOPROLOL TARTRATE 25 MG TAB PO SCH ×2 (07:44→19:56)
[2017-12-12] MEDS: DILTIAZEM HCL 120 MG EXT REL CAP PO SCH (07:44)
[2017-12-12] MEDS: INSULIN ASPART 100 UNITS/ML 3 ML PEN SC SCH ×4 (11:00→19:55)
[2017-12-12 14:06] VITALS: PULSE 68; O2SAT 96
[2017-12-12 15:02] VITALS: BP 183/95; PULSE 68; TEMP 36.4; O2SAT 96
[2017-12-12 15:12] VITALS: BP 151/77; PULSE 69; TEMP 36.6; O2SAT 97
[2017-12-12] MEDS ORDERED: AZIT-57 PO (15:14)
--- NOTE | 2017-12-12 15:21 | Progress Note ---
Internal Med Progress Note Date of Service: Dec 12, 2017. Provider Documentation: Subjective Denies chest pain, SOB, abdominal pain, dizziness OBJECTIVE: Physical Exam: General Appearance:no acute distress Head: normocephalic, Atraumatic Eyes: normal inspection, EOMI Neck: supple, Trachea midline Respiratory/Chest: Normal breath sounds, CTABL Cardiovascular: S1, S2, No murmur Abdomen/GI:Soft, Non tender, Bowel sounds present Extremities/Musculoskelatal:normal inspection, 1+ b/l edema Neurologic/Psych:grossly no focal neurological deficits, alert Skin: normal color, warm ASSESSMENT & PLAN: Hospital Course Patient was evaluated in the hospital primarily for Acute Bronchitis: -was on Tamiflu in the past, flu swab negative on this admission -Blood Cultures: No growth to date -CXR: no signs of Pneumonia -Continue Azithromycin to complete the 5 day total course in case there was pneumonia before Patient also evaluated for Encephalopathy which could be multifactorial in setting of Dementia Tamiflu was discontinued from home medications DM II: Diet controlled A1C:6.5 Blood sugars were elevated in the hospital likely secondary to solumedrol and patient was given insulin Patient had hypokalemia treated with potassium replacements Continue home medications for hypertension Hypothyroidism: Continue Levothyroxine Will need repeat Thyroid tests as outpatient Other health history Sick Sinus Syndrome S/P PPM (Not on Anticoagulation 2/2 history of hemopericardium in 2013) H/O colon cancer (S/P surgery and chemotherapy) Chronic anemia Discharge to [facility] Vital Signs: Date Time Temp Pulse Resp B/P (MAP) Pulse Ox O2 Delivery O2 Flow Rate FiO2 12/12/17 15:12 36.6 69 18 151/77 (101) 97 12/12/17 15:02 36.4 68 18 96 Room Air 12/12/17 14:06 68 18 96 Room Air 12/12/17 08:02 Room Air 12/12/17 07:40 36.4 82 18 183/95 (124) 96 12/12/17 00:40 Room Air 12/11/17 19:30 Room Air 12/11/17 19:15 84 16 98 Room Air 12/11/17 16:38 36.5 97 18 162/66 (98) 98 Room Air 12/11/17 16:00 94 Room Air Lab Results: Results Past 24 Hours Test 12/11/17 16:37 12/11/17 20:35 3/6/18 05:45 12/12/17 07:48 Range/Units Bedside Glucose 177 119 104 70-90 mg/dl White Blood Count 7.99 4.8-10.8 K/uL Red Blood Count 3.60 4.2-5.4 M/uL Hemoglobin 10.7 12.0-16.0 g/dL Hematocrit 32.9 37-47 % Mean Corpuscular Volume 91.4 80-100 fL Mean Corpuscular Hemoglobin 29.7 25-34 pg Mean Corpuscular Hemoglobin Concent 32.5 32-36 g/dl Platelet Count 214 130-400 K/uL Mean Platelet Volume 10.4 7.4-10.4 fL Neutrophils (%) (Auto) 62.3 % Lymphocytes (%) (Auto) 24.4 % Monocytes (%) (Auto) 10.6 % Eosinophils (%) (Auto) 2.0 % Basophils (%) (Auto) 0.3 % Neutrophils # (Auto) 4.98 1.4-6.5 K/uL Lymphocytes # (Auto) 1.95 1.2-3.4 K/uL Monocytes # (Auto) 0.85 0.11-0.59 K/uL Eosinophils # (Auto) 0.16 0-0.5 K/uL Basophils # (Auto) 0.02 0-0.2 K/uL RDW Standard Deviation 49.0 36.4-46.3 fL RDW Coefficient of Variation 14.4 11.5-14.5 % Immature Granulocyte % (Auto) 0.4 % Immature Granulocyte # (Auto) 0.03 0.00-0.02 K/uL Sodium Level 141 136-145 mmol/L Potassium Level 3.7 3.5-5.1 mmol/L Chloride Level 110 98-107 mmol/L Carbon Dioxide Level 25 21-32 mmol/L Anion Gap 5.0 3-11 mmol/L Blood Urea Nitrogen 21 7-18 mg/dl Creatinine 1.09 0.60-1.20 mg/dl Est Creatinine Clear Calc Drug Dose 30.6 ml/min Estimated GFR () 53.2 Estimated GFR (Non- 45.9 BUN/Creatinine Ratio 19.2 10-20 Random Glucose 108 70-99 mg/dl Calcium Level 8.4 8.5-10.1 mg/dl Test 12/12/17 11:37 Range/Units Bedside Glucose 100 70-90 mg/dl
--- NOTE | 2017-12-12 15:28 | Discharge Instructions ---
Discharge Instructions Date of Service Dec 12, 2017. Admission Reason for Admission: Sepsis Discharge Discharge Diagnosis / Problem: Acute Bronchitis, Encephalopathy, Dementia Discharge Goals Goal(s): Improve function Activity Recommendations Activity Limitations: per Instructions/Follow-up section Shower/Bathe: no limitations . Instructions / Follow-Up Instructions / Follow-Up Hospital Course Patient was evaluated in the hospital primarily for Acute Bronchitis: -was on Tamiflu in the past, flu swab negative on this admission -Blood Cultures: No growth to date -CXR: no signs of Pneumonia -Continue Azithromycin to complete the 5 day total course in case there was pneumonia before Patient also evaluated for Encephalopathy which could be multifactorial in setting of Dementia Tamiflu was discontinued from home medications DM II: Diet controlled A1C:6.5 Blood sugars were elevated in the hospital likely secondary to solumedrol and patient was given insulin Patient had hypokalemia treated with potassium replacements Continue home medications for hypertension Hypothyroidism: Continue Levothyroxine Will need repeat Thyroid tests as outpatient Other health history Sick Sinus Syndrome S/P PPM (Not on Anticoagulation 2/2 history of hemopericardium in 2013) H/O colon cancer (S/P surgery and chemotherapy) Chronic anemia Discharge to [facility] Diet Patient's current hospital diet: Diabetes Type 2 Diet Discharge Diet Recommended Diet: Diabetes Type 2 Diet Pending Studies Studies pending at discharge: no Laboratory Results 12/12/17 05:45 Red Blood Count 3.60, Mean Corpuscular Volume 91.4, Mean Corpuscular Hemoglobin 29.7, Mean Corpuscular Hemoglobin Concent 32.5, Mean Platelet Volume 10.4, Neutrophils (%) (Auto) 62.3, Lymphocytes (%) (Auto) 24.4, Monocytes (%) (Auto) 10.6, Eosinophils (%) (Auto) 2.0, Basophils (%) (Auto) 0.3, Neutrophils # (Auto ) 4.98, Lymphocytes # (Auto) 1.95, Monocytes # (Auto) 0.85, Eosinophils # (Auto ) 0.16, Basophils # (Auto) 0.02 12/12/17 05:45 Test 12/08/17 23:00 12/08/17 23:05 12/08/17 23:48 12/08/17 23:53 Urine Color YELLOW Urine Appearance CLEAR (CLEAR) Urine pH 5.0 (4.5-7.5) Urine Specific [place] 1.019 (1.000-1.030) Urine Protein 1+ (NEG) Urine Glucose (UA) NEG (NEG) Urine Ketones NEG (NEG) Urine Occult Blood NEG (NEG) Urine Nitrite NEG (NEG) Urine Bilirubin NEG (NEG) Urine Urobilinogen NEG (NEG) Urine Leukocyte Esterase NEG (NEG) Urine WBC (Auto) 1-5 /hpf (0-5) Urine RBC (Auto) 0-4 /hpf (0-4) Urine Hyaline Casts (Auto) 1-5 /lpf (0-5) Urine Epithelial Cells (Auto) 20-30 /lpf (0-5) Urine Bacteria (Auto) NEG (NEG) Influenza Type A Antigen Neg for Influ A (NEG) Influenza Type B Antigen Neg for Influ B (NEG) Prothrombin Time 10.9 SECONDS (9.0-12.0) Prothromb Time International Ratio 1.0 (0.9-1.1) Total Bilirubin 0.3 mg/dl (0.2-1) Direct Bilirubin 0.1 mg/dl (0-0.2) Aspartate Amino Transf (AST/SGOT) 10 U/L (15-37) Alanine Aminotransferase (ALT/SGPT) 12 U/L (12-78) Alkaline Phosphatase 83 U/L (45-117) Total Creatine Kinase 39 U/L (26-192) Creatine Kinase MB 0.7 ng/ml (0.5-3.6) Creatine Kinase MB Ratio 1.8 (0-3.0) Troponin I < 0.015 ng/ml (0-0.045) Total Protein 8.2 gm/dl (6.4-8.2) Albumin 3.0 gm/dl (3.4-5.0) Thyroid Stimulating Hormone (TSH) 5.290 uIu/ml (0.300-4.500) Free Thyroxine 1.67 ng/dl (0.80-1.60) Bedside Lactic Acid Venous 1.24 mmol/L (0.90-1.70) Test 12/09/17 05:35 12/09/17 05:43 12/11/17 06:16 12/12/17 05:45 Influenza Type A (RT-PCR) Neg for Influ A (NEG) Influenza Type B (RT-PCR) Neg for Influ B (NEG) Estimated Average Glucose 140 mg/dl Hemoglobin A1c 6.5 % (4.5-5.6) Total Triiodothyronine 0.84 ng/ml (0.60-1.81) Magnesium Level 2.2 mg/dl (1.8-2.4) White Blood Count 7.99 K/uL (4.8-10.8) Red Blood Count 3.60 M/uL (4.2-5.4) Hemoglobin 10.7 g/dL (12.0-16.0) Hematocrit 32.9 % (37-47) Mean Corpuscular Volume 91.4 fL (80-100) Mean Corpuscular Hemoglobin 29.7 pg (25-34) Mean Corpuscular Hemoglobin Concent 32.5 g/dl (32-36) Platelet Count 214 K/uL (130-400) Mean Platelet Volume 10.4 fL (7.4-10.4) Neutrophils (%) (Auto) 62.3 % Lymphocytes (%) (Auto) 24.4 % Monocytes (%) (Auto) 10.6 % Eosinophils (%) (Auto) 2.0 % Basophils (%) (Auto) 0.3 % Neutrophils # (Auto) 4.98 K/uL (1.4-6.5) Lymphocytes # (Auto) 1.95 K/uL (1.2-3.4) Monocytes # (Auto) 0.85 K/uL (0.11-0.59) Eosinophils # (Auto) 0.16 K/uL (0-0.5) Basophils # (Auto) 0.02 K/uL (0-0.2) RDW Standard Deviation 49.0 fL (36.4-46.3) RDW Coefficient of Variation 14.4 % (11.5-14.5) Immature Granulocyte % (Auto) 0.4 % Immature Granulocyte # (Auto) 0.03 K/uL (0.00-0.02) Anion Gap 5.0 mmol/L (3-11) Est Creatinine Clear Calc Drug Dose 30.6 ml/min Estimated GFR () 53.2 Estimated GFR (Non- 45.9 BUN/Creatinine Ratio 19.2 (10-20) Calcium Level 8.4 mg/dl (8.5-10.1) Test 12/12/17 11:37 Bedside Glucose 100 mg/dl (70-90) Date/Time Source Procedure Growth Status 12/08/17 23:48 Blood Blood Culture - Preliminary NO GROWTH TO DATE. Resulted 12/09/17 02:50 Nasal MRSA DNA Surveillance Screen - Final Specimen Negative for MRSA by DNA Probe Complete Hemoglobin A1c Test 12/09/17 05:43 Range/Units Estimated Average Glucose 140 mg/dl Hemoglobin A1c 6.5 H 4.5-5.6 % Medical Emergencies . Who to Call and When: Medical Emergencies: If at any time you feel your situation is an emergency, please call 911 immediately. . Non-Emergent Contact Non-Emergency issues call your: Primary Care Provider . . "Provider Documentation" section prepared by Jassi Harrington. .
[2017-12-12 19:12] VITALS: PULSE 75; O2SAT 96
[2017-12-13 00:11] VITALS: BP 173/83; PULSE 73; TEMP 36.4; O2SAT 97
[2017-12-13 01:45] VITALS: PULSE 75; O2SAT 97
[2017-12-13] MEDS: LEVALBUTEROL 1.25MG/0.5ML NEB INH SCH ×3 (01:45→14:13)
[2017-12-13] MEDS: IPRATROPIUM BROMIDE NEB SOLN 0.02% 2.5 ML VIAL INH SCH ×3 (01:45→14:13)
[2017-12-13] MEDS: ENOXAPARIN 30 MG/0.3 ML SYR SQ SCH (05:38)
[2017-12-13] MEDS: LEVOTHYROXINE 50 MCG TAB PO SCH (05:38)
[2017-12-13 07:26] VITALS: PULSE 81; O2SAT 96
[2017-12-13 07:40] VITALS: O2SAT 97
[2017-12-13] MEDS: ATORVASTATIN 10 MG TAB PO SCH (08:10)
[2017-12-13] MEDS: ASPIRIN 81 MG ECTAB PO SCH (08:10)
[2017-12-13] MEDS: DILTIAZEM HCL 120 MG EXT REL CAP PO SCH (08:11)
[2017-12-13] MEDS: AZITHROMYCIN 250 MG TAB PO SCH (08:11)
[2017-12-13] MEDS: METOPROLOL TARTRATE 25 MG TAB PO SCH (08:11)
[2017-12-13] MEDS: INSULIN ASPART 100 UNITS/ML 3 ML PEN SC SCH ×2 (08:15→11:55)
--- NOTE | 2017-12-13 08:38 | Progress Note ---
Internal Med Progress Note Date of Service: Dec 13, 2017. Provider Documentation: Subjective Patient was expected to go to [facility] yesterday but then medical doctor called by nurse that there was no transport. Patient is expected to go to [facility] as she is medically ready for hospital discharge. Patient awaiting hospital discharge. Patient denies pain or problems with breathing OBJECTIVE: Physical Exam: General Appearance:no acute distress Head: normocephalic, Atraumatic Eyes: normal inspection, EOMI Neck: supple, Trachea midline Respiratory/Chest: Normal breath sounds, CTABL Cardiovascular: S1, S2, No murmur Abdomen/GI:Soft, Non tender, Bowel sounds present Extremities/Musculoskelatal:normal inspection, 1+ b/l edema Neurologic/Psych:grossly no focal neurological deficits, alert Skin: normal color, warm ASSESSMENT & PLAN: Hospital Course Patient was evaluated in the hospital primarily for Acute Bronchitis: -was on Tamiflu in the past, flu swab negative on this admission -Blood Cultures: No growth to date -CXR: no signs of Pneumonia -Continue Azithromycin to complete the 5 day total course in case there was pneumonia before Patient also evaluated for Encephalopathy which could be multifactorial in setting of Dementia Tamiflu was discontinued from home medications DM II: Diet controlled A1C:6.5 Blood sugars were elevated in the hospital likely secondary to solumedrol and patient was given insulin Patient had hypokalemia treated with potassium replacements Continue home medications for hypertension Hypothyroidism: Continue Levothyroxine Will need repeat Thyroid tests as outpatient Other health history Sick Sinus Syndrome S/P PPM (Not on Anticoagulation 2/2 history of hemopericardium in 2013) H/O colon cancer (S/P surgery and chemotherapy) Chronic anemia Discharge to [facility] pending transport Vital Signs: Date Time Temp Pulse Resp B/P (MAP) Pulse Ox O2 Delivery O2 Flow Rate FiO2 12/13/17 08:15 Room Air 12/13/17 07:40 97 Room Air 12/13/17 07:26 81 16 96 Room Air 12/13/17 01:45 75 16 97 Room Air 12/13/17 00:11 36.4 73 18 173/83 (113) 97 Room Air 12/13/17 00:00 Room Air 12/12/17 19:30 Room Air 12/12/17 19:12 75 16 96 Room Air 12/12/17 15:12 36.6 69 18 151/77 (101) 97 12/12/17 15:02 36.4 68 18 96 Room Air 12/12/17 14:06 68 18 96 Room Air Lab Results: Results Past 24 Hours Test 12/12/17 11:37 12/12/17 19:55 12/13/17 07:46 Range/Units Bedside Glucose 100 125 101 70-90 mg/dl
[2017-12-13 10:50] VITALS: BP 182/74; PULSE 74; TEMP 36.5; O2SAT 97
[2017-12-13 14:13] VITALS: PULSE 77; O2SAT 97
--- NOTE | 2017-12-13 16:44 | Discharge Summary ---
Discharge Summary Date of Service Dec 13, 2017. Discharge Summary Admission Date: Dec 09, 2017 at 00:54 Discharge Date: Dec 13, 2017 Discharge Disposition: [facility] facility Principal Diagnosis: Acute Bronchitis, Encephalopathy, Dementia, Hypothyroidism Medication Reconciliation New Medications: Azithromycin (Azithromycin) 250 Mg Tab 250 MG PO QAM for 3 Days, #3 TAB Continued Medications: Acetaminophen Tab (Tylenol) 325 Mg Tab 650 MG PO Q4 PRN for MILD/SEVERE PAIN, TAB Albuterol Sulf (Proventil 0.083% 2.5MG/3ML) 2.5 Mg/3 Ml Nebu 2.5 MG INH Q4 PRN for WHEEZING/COUGH, EA Aspirin (Aspirin Ec) 81 Mg Tab 81 MG PO DAILY Atorvastatin (Lipitor) 10 Mg Tab 10 MG PO DAILY, TAB Diltiazem Hcl Ext Rel (Tiazac) 240 Mg Capcr 240 MG PO DAILY, CAP Levothyroxine Sodium (Synthroid) 25 Mcg Tab 50 MCG PO DAILY, TAB Melatonin (Kp Melatonin) 3 Mg Tab 3 MG PO HS for 30 Days, #30 TAB Metoprolol Tartrate (Lopressor) (Lopressor) 25 Mg Tab 12.5 MG PO BID, TAB hold for b/p less than 100 or pulse less than 60 [Dulcolax Suppository] () 10 MG RE DIRECTED PRN for CONSTIPATION [miconazole powder] () 2% 1 APPLN EXT BID apply to rash under arms and to abdominal foldsa Discontinued Medications: Oseltamivir Phosphate (Tamiflu) 75 Mg Cap 30 MG PO DAILY, #10 CAP LAST DOSE ENDS 12/13 Admission Information HPI (per Admitting provider): CHIEF COMPLAINT: cough, confusion as per records. HISTORY OF PRESENT ILLNESS: History obtained from patient, daughter, records. Limited history from patient secondary to dementia. Medical history is significant for dementia, chronic diastolic heart failure, EF of 70%. aFib status post pacemaker placement not on anticoagulation secondary to hx hemopericardium, Hemopericardium status post surgery, hypertension, hyperlipidemia, chronic anemia (baseline hemoglobin 10); DM2, diet controlled, hypothyroidism, history of DVT as per records, colon cancer status post surgery and chemotherapy Recent confinement last October 2013 for CHF, pericardial effusion secondary to perforation of ventricles by pacemaker wire sp pericardicentesis. Patient transferred to [facility] [place] for hemopericardium. Patient subsequently underwent upper pericardectomy w/ drainage of hemo- pericardium, partial removal of pacemaker lead. Coumadin stopped on discharge. As per records, patient noted to be more confused than usual last few days, has been coughing for a week. Patient having paranoia and visual hallucinations. Patient denies chest pain, shortness of breath. No witnessed aspiration. Patient brought to the Emergency Room. Received Levaquin for possible pneumonia. MEDICAL HISTORY: As above. SURGERIES: She has had a pacemaker placement, bowel resection, appendectomy, cholecystectomy, and orthopedic surgery, pericardiectomy. Current/Historical Medications Scheduled Aspirin (Aspirin Ec), 81 MG PO DAILY Atorvastatin (Lipitor), 10 MG PO DAILY Diltiazem Hcl Ext Rel (Tiazac), 240 MG PO DAILY Levothyroxine Sodium (Synthroid), 50 MCG PO DAILY Melatonin (Kp Melatonin), 3 MG PO HS Metoprolol Tartrate (Lopressor) (Lopressor), 12.5 MG PO BID Oseltamivir Phosphate (Tamiflu), 30 MG PO DAILY [miconazole powder], 1 APPLN EXT BID Scheduled PRN Acetaminophen Tab (Tylenol), 650 MG PO Q4 PRN for MILD/SEVERE PAIN Albuterol Sulf (Proventil 0.083% 2.5MG/3ML), 2.5 MG INH Q4 PRN for WHEEZING/ COUGH [Dulcolax Suppository], 10 MG RE DIRECTED PRN for CONSTIPATION Allergies Coded Allergies: Bacitracin (Verified Allergy, Unknown, UNSURE OF REACTION, 12/08/17) Neomycin (Verified Allergy, Unknown, UNSURE OF REACTION, 12/08/17) Nitroglycerin (Verified Allergy, Unknown, "PATCH GLUE CAUSED RASH", 12/08/17 ) Penicillins (Verified Allergy, Unknown, "CAN'T REMEMBER REACTION" ?RASH, ) Polymyxin B (Verified Allergy, Unknown, UNSURE OF REACTION, 12/08/17) Sulfa Drugs (Verified Allergy, Unknown, RASH, 12/08/17) Tetracycline (Verified Allergy, Unknown, UNSURE OF REACTION, 12/08/17) FAMILY HISTORY: Hypertension. PERSONAL AND SOCIAL HISTORY: Nonsmoker, senior living resident. REVIEW OF SYSTEMS: Could not be obtained. Physical Exam (per Admitting): PHYSICAL EXAMINATION: VITAL SIGNS: Blood pressure noted to be 180/71 later 160/80. WA 67, RR 24 temperature 36.5 O2 sats 98% on room air. GENERAL: Noted to be demented, uncomfortable, respiratory distress, coughing. SKIN: Pallor, warm. HEENT: Pale palpebral conjunctivae, no ptosis , dry mucosa. NECK: Short, nontender. CHEST: Decreased breath sounds. Expiratory wheezes. HEART: Regular rate and rhythm. No murmur. ABDOMEN: Soft, nontender. EXTREMITIES: No edema. no gross deformities, no tenderness NEUROLOGIC: Demented but coherent. Slightly hard of hearing. Otherwise, no gross focality. Hospital Course Hospital Course Patient was evaluated in the hospital primarily for Acute Bronchitis: -was on Tamiflu in the past, flu swab negative on this admission -Blood Cultures: No growth to date -CXR: no signs of Pneumonia -Continue Azithromycin to complete the 5 day total course in case there was pneumonia before Patient also evaluated for Encephalopathy which could be multifactorial in setting of Dementia Tamiflu was discontinued from home medications DM II: Diet controlled A1C:6.5 Blood sugars were elevated in the hospital likely secondary to solumedrol and patient was given insulin Patient had hypokalemia treated with potassium replacements Continue home medications for hypertension Hypothyroidism: Continue Levothyroxine Will need repeat Thyroid tests as outpatient Other health history Sick Sinus Syndrome S/P PPM (Not on Anticoagulation 2/2 history of hemopericardium in 2013) H/O colon cancer (S/P surgery and chemotherapy) Chronic anemia Discharge to [facility] pending transport Total time spent on discharge = 60 minutes This includes examination of the patient, discharge planning, medication reconciliation, and communication with other providers. Discharge Instructions see above
== END 2017-12-13 16:15 | DRG 202 ==
LOC: EDBD 22:49 → C.EDB 22:51 → C.4E 12-09 00:54 → ENRESERV 12-09 01:23
PROVIDERS: ADMIT Internal Medicine; ATTEND Hospitalist
DX: J20.9 Acute bronchitis, unspecified (principal); G93.40 Encephalopathy, unspecified; J18.9 Pneumonia, unspecified organism; I50.32 Chronic diastolic (congestive) heart failure; F03.90 Unspecified dementia, unspecified severity, without behavioral disturbance, psychotic disturbance, mood disturbance, and anxiety; E03.9 Hypothyroidism, unspecified; E11.65 Type 2 diabetes mellitus with hyperglycemia; T49.0X5A Adverse effect of local antifungal, anti-infective and anti-inflammatory drugs, initial encounter; I11.0 Hypertensive heart disease with heart failure; I48.91 Unspecified atrial fibrillation; D64.9 Anemia, unspecified; E78.5 Hyperlipidemia, unspecified; Z79.899 Other long term (current) drug therapy; Z79.82 Long term (current) use of aspirin; Z86.79 Personal history of other diseases of the circulatory system; Z95.0 Presence of cardiac pacemaker; Z85.038 Personal history of other malignant neoplasm of large intestine; Z92.21 Personal history of antineoplastic chemotherapy; Z88.1 Allergy status to other antibiotic agents; Z88.2 Allergy status to sulfonamides; Z88.0 Allergy status to penicillin; Z88.8 Allergy status to other drugs, medicaments and biological substances; Z82.49 Family history of ischemic heart disease and other diseases of the circulatory system